=== PATIENT | male | born 1940 | race Caucasian/White ===

== ENCOUNTER 2022-01-22 21:09 | Emergency (ER) | payer MEDICARE, OTHER ==
[2022-01-22] MEDS ORDERED: Iopamidol 612 MG/ML 200 ML Bottle IV ONE (22:23)
[2022-01-22] MEDS ORDERED: Sodium Chloride 0.9% 100 ML IV ONE (22:23)
== END 2022-01-22 23:56 | disposition home or self-care (01) ==
LOC: JP.ED 21:09
DX: K52.9 Noninfective gastroenteritis and colitis, unspecified (principal)
CPT/HCPCS: 36415; 71260; 74177; 80048; 82150; 83605; 83690; 85025; 86140; 99284; J3490; Q9967